=== PATIENT | male | born 1955 | race Caucasian/White ===

== ENCOUNTER 2016-08-04 09:17 | Emergency (ER) | payer MEDICARE, OTHER ==
[~2016-08-04 09:17] MED LIST: *UNABLE1; ADVAIR250 INH; ALBUTEROL NEB TX; ALBUTEROL0.63 MG/3 INH; ALLEGRA180 PO; APRES10B PO; APRES25 PO; ASA5GR PO; ASAB PO; BARRIER CREAM TOP; BEN25 PO; BENTYL10 PO; BIOTENE SPRAY; BIOTENE SPRAY MT; BIOTENE SPRAY PO; BIST PO; CALCIUM CITRATE PO; CALTRA600D PO; CELEXA10 PO; CELEXA20 PO; CENTRUM PO; CLARIT10 PO; CORDARONE PO; COREG12 PO; COREG3 PO; COREG6 PO; CRESTOR10 PO; DOK250 MG PO; EMLA; EQUATE PO; FERROUS FUMARATE PO; FOSRENOL750 MG PO; GARACR15 TOP; IMDUR30 PO; IMDUR60 PO; IRON325 MG PO; KEPPRA1000 MG PO; KEPPRA500 PO; KEPPRAUDL PO; L40 PO; LAX PO; LOTREL1 CA4 PO; MAGNEBIND PO; MAGOX4 PO; MEDROLPAK4 PO; MIRALAXPKT PO; NEUR100 PO; NITROSTAT0.4 MG SL; NORV5 PO; OS500+D PO; OXYCOD PO; P10 PO; PACERONE200 MG PO; PACERONE400 MG PO; PLAVIX PO; PREV30 PO; PRILO PO; PROBIOTIC PO; PROTONIX PO; PROVENTSOL INH; PROVIGIL2 PO; RAN500 PO; RANEXA1000 MG PO; REG PO; REG5 PO; ROCALTROL 0.0.25 MCG PO; ROCALTROL0.25 MCG PO; ROCALTROL0.5 MCG PO; SENTAB PO; SODBICAR10 PO; STOOL SOFT PO; STOOL SOFTEN240 MG PO; TRAZ100 PO; TUMSROLL PO; VENTOLIN HFA IH; VIMPAT100 MG PO; VIMPAT50 MG PO; VITAMIN B-121000 MC1 SL; Z100 PO; Z300 PO; ZANTAC 75 PO; ZANTAC150 MG PO; [UNRECOGNIZED DRUG - OTHER]; [UNRECOGNIZED DRUG - OTHER] PO
[2016-08-04 10:05] LABS: BASOPHILS 0.5 %; BASOPHILS ABSOLUTE 0.03 10/3/uL (0.0-0.16); EOSINOPHILS ABSOLUTE 0.13 10/3/uL (0.0-0.53); HEMATOCRIT 39.8 % (40.0-51.0); HEMOGLOBIN 13.1 g/dL (13.6-17.8); IMMATURE GRANULOCYTES 0.3 %; IMMATURE GRANULOCYTES ABSOLUTE 0.02 10/3/uL (0.0-0.11); LYMPHOCYTES 22.1 %; LYMPHOCYTES ABSOLUTE 1.45 10/3/uL (0.67-4.30); MEAN CORPUS HGB CONC 32.9 g/dL (32.0-36.0); MEAN CORPUSCULAR HEMOGLOB 32.3 pg (26.0-34.0); MEAN CORPUSCULAR VOLUME 98.3 fL (80-100); MEAN PLATELET VOLUME 9.1 fL (9.2-13.0); MONOCYTES 8.5 %; MONOCYTES ABSOLUTE 0.56 10/3/uL (0.21-1.20); NEUTROPHILS 66.6 %; NEUTROPHILS ABSOLUTE 4.37 10/3/uL (2.02-8.40); PLATELET COUNT 141 10/3/uL (150-400); RBC DISTRIBUTION WIDTH 15.7 % (12.0-16.0); RED CELL COUNT 4.05 10/6/uL (4.7-6.1); WHITE BLOOD CELLS 6.6 10/3/uL (4.5-10.5)
[2016-08-04 10:06] LABS: MANUAL DIFF NO %
[2016-08-04 10:22] LABS: A/G RATIO 0.8 (0.7-1.9); ALBUMIN 3.4 G/DL (3.5-5.0); ALKALINE PHOSPHATASE 81 U/L (45-117); CALCIUM, SERUM 9.4 MG/DL (8.5-10.4); CHLORIDE, SERUM 92 MMOL/L (96-112); CO2 (CARBON DIOXIDE) 29 MMOL/L (24-34); GFR AFRICAN AMERICAN 7 ML/MIN (>=60); GFR NON AFRICAN AMERICAN 6 ML/MIN (>=60); GLOBULIN 4.5 G/DL (2.5-4.1); GLUCOSE, SERUM 80 MG/DL (60-99); POTASSIUM, SERUM 3.6 MMOL/L (3.5-5.3); SGOT(AST) 19 U/L (5-40); SGPT(ALT) 12 U/L (5-65); SODIUM, SERUM 135 MMOL/L (135-148); TOTAL BILIRUBIN 0.5 MG/DL (0-1.2); TOTAL PROTEIN 7.9 G/DL (6.0-8.5); TROPONIN I <0.02 NG/ML (<0.05)
[2016-08-04 10:24] LABS: BUN (BLOOD UREA NITROGEN) 37 MG/DL (6-23); CREATININE 8.23 MG/DL (0.70-1.30)
[2016-08-04 16:20] LABS: BE (BASE EXCESS) 2.7 MEQ/L (0 +/- 2.5); INSTRUMENT SERIAL # 8087; PCO2 (CO2 TENSION) 39 MMHG (35-45); PO2 (O2 TENSION) 84 MMHG (79-93); pH 7.45 (7.37-7.43)
[2016-08-04 16:21] LABS: ALLENS TEST Pos; CARBOXYHEMOGLOBIN 1.5 % (0-3); HCO3 (ACTUAL BICARBONATE) 26.7 MEQ/L (23-27); HEMOBLOGIN CONTENT 11.9 G/DL (14-18); METHEMOGLOBIN 0.3 % (0-3); O2 CONTENT 15.6 VOL% (18-24); OPERATOR ID 32214; SAMPLE Arterial
== END 2016-08-04 17:19 | disposition home or self-care (01) ==
LOC: ER 09:17
PROVIDERS: Emergency Medicine
DX: R06.6 Hiccough (principal); J44.9 Chronic obstructive pulmonary disease, unspecified; E11.9 Type 2 diabetes mellitus without complications; D64.9 Anemia, unspecified; Z85.118 Personal history of other malignant neoplasm of bronchus and lung; Z87.891 Personal history of nicotine dependence; Z86.73 Personal history of transient ischemic attack (TIA), and cerebral infarction without residual deficits; Z88.6 Allergy status to analgesic agent; Z88.8 Allergy status to other drugs, medicaments and biological substances; Z88.1 Allergy status to other antibiotic agents; Z79.899 Other long term (current) drug therapy
CPT/HCPCS: 36600; 71010; 80053; 82805; 83690; 84484; 85025; 93005; 96372; 96374; 96375; 99285; J1200; J2405; J3230